=== PATIENT | female | born 1965 | race Caucasian/White ===

== ENCOUNTER 2025-05-25 15:46 | Emergency (ER) | payer BC, SELFPAY ==
[2025-05-25 15:56] VITALS: BP 172/97
--- NOTE | 2025-05-25 18:05 | ED.GENMED ---
History of Present Illness
General
Chief Complaint: Head Injury
Source: patient
Exam Limitations: none
Time Seen by Provider: 05/25/25 17:31
History of Present Illness
History of Present Illness:
Note:
CHIEF COMPLAINT(S)
Head laceration after fall.
HISTORY OF PRESENT ILLNESS
The patient is a 60-year-old female who presented after experiencing a fall at home. She reported that she was advising her grandchildren not to run to avoid falling when she inadvertently fell backward herself, hitting the corner of a coffee table
which has a rounded edge. She sustained a laceration on her posterior scalp as a result. The laceration appears small and it was suggested that it could be treated with melia, which the patient agreed to without local anesthesia as she noted that
the pain from lidocaine is similar to the melia themselves. The patient also mentioned experiencing a headache after the fall but a computed tomography (CT) scan report was reviewed and showed no acute intracranial abnormalities. The patient
denies any neck pain or tenderness and retains normal cervical spine range of motion.
REVIEW OF SYSTEMS
- Neurological: Headache after fall with no current neck pain or tenderness.
- Musculoskeletal: No cervical spine tenderness, normal range of motion noted.
- Integumentary: Small laceration on the posterior scalp.
PHYSICAL EXAM
General: Alert, no acute distress.
Skin: Warm, dry. Small laceration in the left occipital region of the posterior scalp, minimal surrounding swelling, no hematoma.
Head: Normocephalic, atraumatic other than scalp laceration.
Neck: No midline cervical spine tenderness, normal range of motion of the cervical spine.
Eye, Ears, Nose, Mouth, and Throat: Pupils equal, round, and reactive to light. Extraocular movements intact.
Cardiovascular: Normal peripheral perfusion, No edema.
Respiratory: Respirations are non-labored.
Gastrointestinal: Abdomen nondistended.
Back: Normal range of motion, Normal alignment.
Musculoskeletal: Normal ROM, normal strength.
Neurological: Alert and oriented to person, place, time, and situation, No focal neurological deficit observed.
Psychiatric: Cooperative, appropriate mood & affect.
PROBLEM LIST
Acute Problems:
- Scalp laceration
- Headache post fall
PLAN
1. Proceed with staple closure for the small scalp laceration.
2. Advise patient about signs of infection or complications at the wound site.
3. Watchful for neck stiffness or delayed onset pain, recommend reassessment if symptoms develop.
4. Educate the patient on fall prevention strategies at home.
DIFFERENTIAL DIAGNOSIS
The Differential Diagnosis includes, in no particular order and is not limited to:
1. Scalp contusion
2. Cervical spine fracture (ruled out by assessment criteria)
3. Concussion
4. Subdural hematoma (ruled out by CT scan)
5. Epidural hematoma
6. Headache secondary to laceration
7. Cervical strain/sprain
8. Primary headache disorder
9. Post-traumatic headache
10. Intracerebral hemorrhage (ruled out by CT scan)
Disposition:
SUMMARY OF ENCOUNTER
The patient, a 60-year-old female, presented to the emergency department following a fall at home resulting in a small scalp laceration. The laceration was located on the posterior scalp due to an impact with a coffee table. After a thorough
examination, it was determined that the laceration could be effectively treated with melia. A computed tomography (CT) scan of the head was performed to rule out any intracranial hemorrhage and was read as normal. The patients neurological
examination was unremarkable. The wound was cleansed, and the scalp laceration was closed with melia, as the patient consented to the procedure without local anesthesia.
DISPOSITION
Discharge.
ASSESSMENT
Scalp laceration, headache post fall.
PROCEDURES
Closure of scalp laceration with melia.
PATIENT EDUCATION AND COUNSELING
The patient was educated on monitoring for signs of infection or complications at the wound site. The importance of fall prevention strategies at home was also highlighted.
FOLLOW-UP INSTRUCTIONS
The patient is advised to return for suture or staple removal in one week.
MEDICAL DECISION MAKING
-Complexity of Data Reviewed: Consideration was given to the differential diagnosis of scalp contusion, concussion, headache secondary to the laceration, post-traumatic headache, cervical strain/sprain, and ruled out conditions including cervical
spine fracture, subdural and epidural hematomas, primary headache disorder, and intracerebral hemorrhage.
-Data:
Category 1: My independent review of the CT scan showed no acute intracranial abnormalities.
Category 2: My independent interpretation of the CT scan confirmed the absence of intracranial hemorrhage.
-Risk: Consideration of Admission/Observation: Escalation of care including admission/observation was considered given the complexity and risk of the patients presenting complaint and exam findings. However, ultimately, the patient is considered
safe for outpatient management with close follow-up. Reasoning: Work-up reassuring, does not reveal any acute life/organ-threatening processes, the patients symptoms are well controlled upon reevaluation, reexamination is reassuring, vitals are
stable, patient agreeable with discharge, reliable for follow-up.
DIAGNOSIS
- S01.01XA - Laceration without foreign body of scalp
- R51 - Headache
Past History
Past History
ED Past Surgical History: Orthopedic and Other (Hernia repair)
Social History
Employment: Employed
Family History
Family History: Other (n/c)
Phy Exam
Physical Exam
Physical Exam:
.
Course
Orders/Labs/Results
Orders:
Orders
05/25/25 16:00
CT Head W/o Iv Contrast Urgent
Comment:
Reason For Exam: fall head injury
Vital Signs
Initial and Last Documented VS:
Initial Vital Signs
Pulse Resp BP Pulse Ox
95 20 172/97 97
05/25/25 15:56 05/25/25 15:56 05/25/25 15:56 05/25/25 15:56
Last Documented Vital Signs
Pulse Resp BP Pulse Ox
95 20 172/97 97
05/25/25 15:56 05/25/25 17:42 05/25/25 15:56 05/25/25 15:56
Procedures
Laceration Closure
Left Scalp:
Status of Wound: clean
Size of Wound in cm: 1
Description of Wound Edges: ragged
Preparation: cleaned with saline and cleaned with Betadine
Wound exploration: explored to base- no FB
Type of Closure: single layer closure
Skin Closure Material: skin melia (2)
*Pulse Oximetry
SaO2: 97
Oxygen Mode of Delivery: Room air
Patient hypoxic: no
*Critical Care Note
Total Time (30-74mins, 75-104mins- exclusive of procedures): Not Applicable
ED Attending Note
-
Portions of this chart may have been created with voice recognition software.� Occasional wrong word or��sound alike� substitutions may have occurred due to the inherent limitations of voice recognition software.
Discharge Plan
Departure
Patient Disposition: Home (Routine Discharge)
Date of Disposition: 05/25/25
Time of Disposition: 18:05
Patient with high blood pressure during this ER visit?: Yes
Discharge Problem:
Head injury, Laceration of scalp
Instructions: Head Injury in Adults (DC), Laceration Repair With [place] (DC), BLOOD PRESSURE
Prescriptions:
No Action
cefdinir [Omnicef] 300 MG capsule
300 mg PO BID Qty: 14 0RF
Referrals:
Sarah Mosher DO [Family Provider, Family Practice]
Activity Restrictions/Additional Instructions:
Return immediately for vomiting, headache, weakness of any kind or any other concerns. Melia can be removed in 1 week
Interventions
Interventions:
*Risk Screen - Suicide Last Done: 05/25/25 15:56
*General Assessment Last Done: 05/25/25 15:56
*Neglect/Abuse Screening Last Done: 05/25/25 15:56
*ED COVID-19 Vaccine History Last Done: 05/25/25 17:42
*ED Influenza Vaccine History Last Done: 05/25/25 17:42
[facility] Fall Risk Assessment Tool Last Done: 05/25/25 17:42
ED- Neurological Assessment Last Done: 05/25/25 17:42
ED-Skin Assessment Last Done: 05/25/25 17:42
Discharge Date and Time
Print Language: CROATIAN
[2025-05-25 18:13] VITALS: BP 148/84
== END 2025-05-25 18:14 | disposition home or self-care (01) ==
LOC: EMR 15:46
PROVIDERS: EMERGENCY PHYSICIAN Emergency Medicine; FAMILY PHYSICIAN Family Medicine
DX: S01.01XA Laceration without foreign body of scalp, initial encounter (principal); W19.XXXA Unspecified fall, initial encounter; Y92.009 Unspecified place in unspecified non-institutional (private) residence as the place of occurrence of the external cause
CPT/HCPCS: 12001; 99284; 70450